=== PATIENT | male | born 1980 | race Caucasian/White ===

== ENCOUNTER 2017-07-27 18:34 | Inpatient (IN) ==
[2017-07-27] MEDS ORDERED: IOPAMIDOL 100 ML BOTTLE IV ONE (18:35)
--- NOTE | 2017-07-27 19:06 | Emergency Department Note ---
Abdominal Pain HPI - General Chief Complaint: Abdominal Pain Stated Complaint: abd pain Time Seen by Provider: 07/27/17 18:55 Source: patient Mode of arrival: ambulatory Limitations: no limitations - History of Present Illness HPI Narrative: Patient woke up this morning feeling normal did have breakfast at 9:00 in the morning which is his last meal. Patient states that approximately 10:00 in the morning started developing some midepigastric pain and the pain shifted over to the right lower quadrant at approximately 1:00. He has had 3 episodes of nausea vomiting. He has had no history of abdominal surgeries no appendectomies cholecystectomies. Is been no diarrhea or constipation issues no hematemesis no melena. Denies any urgency frequency or dysuria temperature is 98.1 blood pressure 131/89 pulse ox is 97% pulse is running at 92 respirations 16 - Related Data Home Medications Medication Instructions Recorded Confirmed Unknown For Bp 07/27/17 Allergies Allergy/AdvReac Type Severity Reaction Status Date / Time No Known Drug Allergies Allergy Unverified 07/27/17 18:38 Review of Systems All systems ED: reviewed and negative except as stated. Constitutional: Denies: fever, chills Eyes: Denies: eye pain ENT ED: Denies: ear pain Cardiovascular: Denies: chest pain Respiratory: Denies: shortness of breath Gastrointestinal: Reports: abdominal pain, nausea, vomiting. Denies: diarrhea, constipation, hematochezia, melena Genitourinary: Reports: as per HPI. Denies: dysuria, frequency, urgency Musculoskeletal: Denies: back pain Integumentary: Denies: rash, lesions Neurological: Denies: headache, weakness Psychiatric: Denies: anxiety, depression Endocrine: Denies: fatigue Hematological/Lymphatic: Denies: easy bleeding Abdominal Pain PMH - Past Medical History Medical history: Reports: non-contributory Surgical history ED: Reports: non-contributory - Social History Smoking status: Current every day smoker Alcohol use: Reports: Unknown Drug use: Reports: unknown Physical Exam Limitations: no limitations General appearance: alert Head: atraumatic, normocephalic Eye: Present: normal appearance. Absent: PERRL, EOMI ENT: normal exam, normal oropharynx, mucous membranes moist Neck: Present: normal inspection, full ROM. Absent: trachea midline Chest: Present: normal inspection. Absent: symmetric chest wall rise, tenderness Respiratory: Present: normal lung sounds bilaterally. Absent: respiratory distress, wheezes, stridor Cardiovascular: Present: regular rate, normal rhythm. Absent: bradycardia, tachycardia Abdominal: Present: soft, tenderness, guarding, rebound, normal bowel sounds. Absent: distention, rigidity Abdominal tenderness: Present: RLQ Extremities: Present: normal inspection, full ROM. Absent: tenderness Back: Present: normal inspection, full ROM. Absent: tenderness Neurological: Present: alert, oriented X3, CN II-XII intact Psychiatric: Present: normal affect, normal mood. Absent: depressed, agitated, anxious Skin: Present: warm, dry. Absent: intact, normal color Course Vital Signs Temperature 98.1 F 07/27/17 18:35 Pulse Rate 92 H 07/27/17 18:35 Respiratory Rate 16 07/27/17 18:35 Blood Pressure 137/89 07/27/17 18:35 Pulse Oximetry (%) 97 07/27/17 18:35 Temperature 98.1 F 07/27/17 18:35 Pulse Rate 80 07/27/17 19:47 Respiratory Rate 16 07/27/17 18:35 Blood Pressure 137/97 07/27/17 19:47 Pulse Oximetry (%) 98 07/27/17 19:47 Abdominal Pain - MDM Narrative Medical decision making narrative: Having guarding and rebound in the right lower quadrant. His UA is negative. White count is elevated at 19,600 CT of the abdomen reveals acute appendicitis. Dr Tapia contacted and patient to be admitted kept npo after midnight and surgery in am... Mariajose and greta cardenas in ed per Dr Tapia - Lab Data Result diagrams: 07/27/17 19:00 07/27/17 19:00 Lab Results 07/27/17 07/27/17 07/27/17 Range/Units 19:00 19:00 19:00 WBC 19.4 H (4.5-11.0) K/mcL RBC 4.33 L (4.50-5.90) M/mcL Hgb 14.6 (13.5-16.5) g/dL Hct 42.9 (41.0-55.0) % POC Hct 43.0 (41.0-55.0) % MCV 99.2 (80.0-100.0) fL MCH 33.8 (26.0-34.0) pg MCHC 34.1 (31.0-36.0) g/dL RDW 15.0 H (11.5-14.5) % Plt Count 324 (140-440) K/mcL MPV 8.0 (7.4-10.4) fL Total Counted 100 Seg Neutrophils % 85 H (38-78) % Band Neutrophils % Not Reportable Lymphocytes % 11 L (15-49) % Monocytes % (Manual) 4 (1-12) % Platelet Estimate Normal (NORMAL) RBC Morphology Normal (NORMAL) POC Sodium 138 (133-145) mmol/L Sodium 136 (133-145) mmol/L POC Potassium 3.9 (3.3-5.1) mmol/L Potassium 4.0 (3.3-5.1) mmol/L POC Chloride 102 (96-108) mmol/L Chloride 98 (96-108) mmol/L Carbon Dioxide 22 (22-30) mmol/L POC Total CO2 23 (22-30) mmol/L Anion Gap 16.0 (8-16) POC BUN 4 L (6-20) mg/dl BUN 6 (6-20) mg/dl Creatinine 0.7 (0.7-1.2) mg/dl POC Creatinine 0.5 L (0.7-1.2) mg/dl GFR Calculation 121 Glucose 112 H (70-105) mg/dL POC Glucose 115 H (70-105) mg/dL Calcium 9.4 (8.6-10.4) mg/dl POC WB Ioniz Calcium 1.12 L (1.16-1.32) mmol/L Total Bilirubin 0.6 (0.0-1.0) mg/dL AST 42 H (0-37) U/l ALT 39 (0-40) U/l Alkaline Phosphatase 89 (39-117) U/L Total Protein 7.6 (5.9-8.4) gm/dL Albumin 4.2 (3.2-5.2) gm/dL Globulin 3.4 (2.2-3.7) gm/dL Albumin/Globulin Ratio 1.2 (1.0-2.3) Lipase 19 (7-60) U/L Disposition Pt seen by PENAL OFFICER/PA only: No Clinical Impression: Appendicitis Qualifiers: Appendicitis type: acute appendicitis Disposition: Xfer As Inpt ([facility]) Condition: Fair Referrals: Jose Francisco Mckenna, [Primary Care Provider] -
[2017-07-27] MEDS: 0.9 % SODIUM CHLORIDE 1,000 ML IV SCH ×3 (19:42→23:34)
[2017-07-27 19:48] LABS: Mean Cell Volume 99.2 fL (80.0-100.0); Mean Corpuscular HGB Conc 34.1 g/dL (31.0-36.0); Mean Corpuscular Hemoglobin 33.8 pg (26.0-34.0); Platelet Count 324 K/mcL (140-440); RBC 4.33 M/mcL (4.50-5.90)
[2017-07-27 20:11] LABS: ALT/SGPT 39 U/l (0-40); Albumin 4.2 gm/dL (3.2-5.2); Albumin/Globulin Ratio 1.2 (1.0-2.3); Alkaline Phosphatase 89 U/L (39-117); Blood Urea Nitrogen 6 mg/dl (6-20)
[2017-07-27 20:25] LABS: Lymphocytes % 11 % (15-49); Monocytes % (Manual) 4 % (1-12); Platelet Estimate NORMAL (NORMAL); RBC Morphology NORMAL (NORMAL); Segmented Neutrophils % 85 % (38-78)
[2017-07-27] MEDS ORDERED: metroNIDAZOLE 500 MG/100 ML BAG IV ONE (20:47)
[2017-07-27] MEDS ORDERED: LEVOFLOXACIN 500 MG/100 ML BAG IV ONE (20:47)
[2017-07-27] MEDS ORDERED: ONDANSETRON 4 MG/2 ML VIAL IV PRN (20:56)
[2017-07-27] MEDS: PIPERACILLIN SODIUM/TAZOBACTAM 3.375 GM in DEXTROSE 5% IN WATER 50 ML IV SCH (23:53)
[2017-07-28 03:12] LABS: Appearance,Urine CLEAR; Bilirubin,Urine NEG (NEG); Color,Urine YELLOW; Glucose,Urine (UA) NEGATIVE (NEG); Leukocyte Esterase,Urine NEG /uL (NEG); Protein,Urine NEG (NEG); Specific Gravity,Urine 1.028 (1.000-1.035); Urine Blood NEG mg/dL (<0.03); Urobilinogen,Urine NEG (NEG)
[2017-07-28] MEDS: 0.9 % SODIUM CHLORIDE 1,000 ML IV SCH ×3 (03:42→14:01)
[2017-07-28] MEDS: PIPERACILLIN SODIUM/TAZOBACTAM 3.375 GM in DEXTROSE 5% IN WATER 50 ML IV SCH ×4 (04:58→22:11)
--- NOTE | 2017-07-28 06:52 | Cat Scan Report ---
CLINICAL INFORMATION: Right lower quadrant pain elevated white blood cell count COMPARISON: None. TECHNIQUE: 80 cc of Isovue-300 were injected intravenously, and 60 seconds later, 0.625 mm helical slices were obtained from the mid heart through the subtrochanteric regions. Following reconstruction, 2.5 mm sagittal, coronal and axial reformatted images were processed and reviewed at bone, lung and soft tissue windows. Five minutes later, 0.625 mm helical slices were obtained from the mid heart through the kidneys and viewed at soft tissue windows.The exam was performed using radiation dose optimization techniques including, but not limited to, automated exposure control, adjustment of the mA and/or kV according to patient size and use of iterative reconstruction technique. FINDINGS: Lung bases show no abnormality - no effusion. The visualized heart is normal. Images should the abdomen show the gallbladder and bile ducts, liver, both kidneys, adrenal glands, spleen, pancreas and aorta to be normal in size and figuration attenuation without focal lesion. 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 Images should the pelvis show urinary bladder, prostate seminal vesicles to be unremarkable. There is no free air, or free fluid. The appendix, located in in the inferior medial pericecal region, is dilated (12 millimeters) with wall thickening and inflammation in the periappendiceal fat. No appendicolith or abscess identified. The small bowel , stomach and large bowel are, otherwise, normal. Bone windows show no osseous abnormality IMPRESSION: Simple appendicitis. The appendix is located in the inferior medial pericecal region. Interpreted and Authenticated by: Misael Chi 07/28/17
--- NOTE | 2017-07-28 09:27 | General Surg History&Physical ---
History of Present Illness Patient information: Note initiated : 07/28/17 at 9:25 am Service Date, if different from initiated Date: [] Patient: Uche Ferrer a 37 y/o M admitted on 07/27/17 for abd pain. Chief Complaint: [] HPI: Mr. Ferrer is a 37 year old M admitted with recurrent abdominal pain. The patient had onset of upper abdominal pain in the midepigastrium about 10 AM yesterday. The pain continued throughout the day and he had multiple episodes of nausea and vomiting. He took tkes-zaq-mrimses medications without improvement. The pain finally settled in the right lower quadrant and became increasingly severe. He finally came to the emergency room where he was noted to have a tender abdomen with a white blood count of 19,[address] evidence of acute appendicitis. He he is admitted and will have laparoscopic Appendectomy on August 06. Past History Past medical history: Recent history of alcoholic hepatitis with jaundice due to excess alcohol intake, resolved Past surgical history: No surgical procedure Past family history: Mom age 70 with hypertension Father age 68 no medical illnesses Sister age 34 no medical illnesses Past social history: Single History of tobacco use of 6-8 cigarettes per day Prior history of heavy alcohol use, stopped 1-1/2 months ago Drug use-- patient denies use Medications and Allergies Home Medications Medication Instructions Recorded Confirmed Type Folic Acid 1 mg PO ONCE 07/27/17 07/27/17 History Losartan/Hctz 50/12.5 [Hyzaar 1 tab PO QDAY 07/27/17 07/27/17 History 50/12.5] Omeprazole [PriLOSEC] 20 mg PO DAILY 07/27/17 07/28/17 History Allergies Allergy/AdvReac Type Severity Reaction Status Date / Time No Known Drug Allergies Allergy Unverified 07/27/17 18:38 Exam Temp Pulse Resp BP Pulse Ox 99.8 F H 81 18 118/71 94 07/28/17 07:32 07/28/17 04:00 07/28/17 07:32 07/28/17 07:32 07/28/17 07:32 - General physical appearance well developed, well nourished, no distress, moderate pain, obese - Eyes PERRL, normal ocular movement. negative: icteric - ENT normal pinna, normal nares, normal mucosa, no hearing loss, no congestion - Head Head exam IM: Present: atraumatic, normal inspection, normocephalic - Neck no masses, no bruits, trachea midline, no lymphadectomy, no venous distension - Cardiovascular Cardiovascular exam IM: Present: normal rate and rhythm, RRR, +S1, +S2. Absent : JVD, tachycardia - Respiratory normal expansion, normal respiratory effort, clear to percussion, clear to auscultation - Abdomen Abdomen: Present: soft, tender (mild tenderness in left lower quadrant without guarding or rebound), bowel sounds Hernia: Present: none - Genitourinary Present: normal penis with no external lesions - Integumentary Present: no rash, no growths, no abnormal pigmentation - Neurologic Present: normal coordination, normal sensation - Musculoskeletal Present: normal gait, normal posture - Psychiatric Present: oriented to time, oriented to person, oriented to place, speech is normal, memory intact Assessment and Plan (1) Acute appendicitis Patient is counseled for laparoscopic appendectomy and then will be done later this morning Status: Acute Qualifiers: Acute appendicitis type: with localized peritonitis Qualified Code(s): K35.3 - Acute appendicitis with localized peritonitis (2) Hypertension Will continue her oral medications after surgery Status: Acute (3) History of acute alcoholic hepatitis Status: Acute
[2017-07-28] MEDS ORDERED: HYDROmorphone 2 MG/ML VIAL IV PRN (10:17)
[2017-07-28] MEDS ORDERED: IPRATROPIUM/ALBUTEROL 3 ML AMPUL.NEB NEB PRN (10:17)
[2017-07-28] MEDS ORDERED: LACTATED RINGERS 250 ML IV PRN (10:17)
[2017-07-28] MEDS ORDERED: PROMETHAZINE 25 MG/ML VIAL IM PRN (10:17)
[2017-07-28] MEDS ORDERED: KETOROLAC 30 MG/ML VIAL IV PRN (10:17)
[2017-07-28] MEDS ORDERED: MEPERIDINE 50 MG/ML INJECTION IM PRN (10:17)
[2017-07-28] MEDS ORDERED: METHOCARBAMOL 1,000 MG/10 ML VIAL IV PRN (10:17)
[2017-07-28] MEDS ORDERED: fentaNYL 100 MCG/2 ML VIAL IV PRN (10:17)
[2017-07-28] MEDS ORDERED: PROMETHAZINE 25 MG/ML VIAL IV PRN (10:17)
[2017-07-28] MEDS ORDERED: NALOXONE HCL 0.4 MG/ML VIAL IV PRN (10:17)
[2017-07-28] MEDS ORDERED: MEPERIDINE 25 MG/ML SYRINGE IV PRN (10:17)
[2017-07-28] MEDS ORDERED: ACETAMINOPHEN 1,000 MG/100 ML BOTTLE IV ONE (10:17)
[2017-07-28] MEDS ORDERED: FLUMAZENIL 0.1 MG/ML ML IV PRN (10:17)
[2017-07-28] MEDS ORDERED: BENZOCAINE/MENTHOL 1 LOZENGE PO PRN (10:17)
[2017-07-28] MEDS ORDERED: LACTATED RINGERS 1,000 ML IV SCH (10:30)
[2017-07-28] MEDS ORDERED: DEXAMETHASONE 10 MG/ML VIAL IV ONE (10:35)
[2017-07-28] MEDS ORDERED: ROCURONIUM 10 MG/ML ML IV ONE (10:35)
[2017-07-28] MEDS ORDERED: SUCCINYLCHOLINE 20 MG/ML ML IV ONE (10:35)
[2017-07-28] MEDS ORDERED: MIDAZOLAM 5 MG/5 ML VIAL IV ONE (10:35)
[2017-07-28] MEDS ORDERED: PHENYLEPHRINE 10 MG/ML VIAL IV ONE (10:35)
[2017-07-28] MEDS ORDERED: KETAMINE 100 MG/ML ML IV ONE (10:35)
[2017-07-28] MEDS ORDERED: LIDOCAINE HCL/PF 100 MG/5 ML SYRINGE IV ONE (10:35)
[2017-07-28] MEDS ORDERED: PROPOFOL 200 MG/20 ML VIAL IV ONE (10:35)
[2017-07-28] MEDS ORDERED: ONDANSETRON 4 MG/2 ML VIAL IV ONE (10:35)
[2017-07-28] MEDS ORDERED: fentaNYL 250 MCG/5 ML VIAL IV ONE (10:35)
[2017-07-28] MEDS ORDERED: GLYCOPYRROLATE 0.2 MG/ML VIAL IV ONE (10:35)
[2017-07-28] MEDS ORDERED: NEOSTIGMINE 1 MG/ML VIAL IV ONE (10:35)
--- NOTE | 2017-07-28 12:32 | Brief Operative Note ---
Date of procedure: 07/28/17 Pre-op diagnosis: ACUTE APPENDICITIS Post-op diagnosis: other (ACUTE APPENDICITIS WITH PERFORATION) Procedure: LAPAROSCOPIC APPENDECTOMY Grafts/Implants: No (ANKUSH X1) Anesthesia: GETA Findings: PARTIALLY RETROCECAL INFLAMMED APPENDIX WITH PERFORATION AND PHEGMON Complications: none Surgeon: Wesley Tapia Estimated blood loss (cc): 35 Specimens Removed/Pathology: other (APPENDIX) Condition: stable Disposition: PACU
[2017-07-28] MEDS ORDERED: ONDANSETRON 4 MG/2 ML VIAL IV PRN (13:12)
[2017-07-28] MEDS: FOLIC ACID 1 MG TABLET PO SCH (14:45)
[2017-07-29] MEDS: 0.9 % SODIUM CHLORIDE 1,000 ML IV SCH ×2 (00:15→09:51)
[2017-07-29] MEDS: PIPERACILLIN SODIUM/TAZOBACTAM 3.375 GM in DEXTROSE 5% IN WATER 50 ML IV SCH ×3 (06:00→21:54)
[2017-07-29] MEDS: OMEPRAZOLE 20 MG CAPSULE PO SCH (07:05)
[2017-07-29 07:16] LABS: Basophils # (Auto) 0 K/mcL (0.0-0.3); Basophils % (Auto) 0 % (0.0-2.0); Eosinophils # (Auto) 0 K/mcL (0.0-0.7); Eosinophils % (Auto) 0 % (0.0-7.0); Granulocytes % (Auto) 94.3 % (38.0-78.0); Lymphocytes # (Auto) 0.3 K/mcL (1.5-4.8); Mean Cell Volume 100.9 fL (80.0-100.0); Mean Corpuscular Hemoglobin 34.3 pg (26.0-34.0); Monocytes # (Auto) 0.5 K/mcL (0.1-0.9); Monocytes % (Auto) 3.7 % (1.0-12.0); Platelet Count 215 K/mcL (140-440); RBC 3.71 M/mcL (4.50-5.90); Red Cell Distribution Width 14.9 % (11.5-14.5)
[2017-07-29 08:12] LABS: ALT/SGPT 26 U/l (0-40); Albumin 3.7 gm/dL (3.2-5.2); Albumin/Globulin Ratio 1.2 (1.0-2.3); Alkaline Phosphatase 69 U/L (39-117); Bilirubin,Direct < 0.2 mg/dL (0.0-0.3); Blood Urea Nitrogen 8 mg/dl (6-20); Gamma Glutamyl Transpeptidase 85 U/L (8-61); Uric Acid 4.3 mg/dL (2.5-8.0)
[2017-07-29] MEDS ORDERED: LOSARTAN/HCTZ 50/12.5 TABLET PO SCH (09:00)
[2017-07-29] MEDS: LOSARTAN 50 MG TABLET PO SCH (09:50)
[2017-07-29] MEDS: HYDROCHLOROTHIAZIDE 12.5 MG CAPSULE PO SCH (09:50)
--- NOTE | 2017-07-29 14:08 | General Surgery Progress Note ---
Subjective Patient reports: feels better, pain is less, tolerating liquids well, flatus, bowel movement Narrative: Note initiated : 07/29/17 at 2:08 pm Service Date, if different from initiated Date: [] Patient: Uche Ferrer 37 y/o M admitted on 07/27/17 for abd pain. Chief Complaint: [patient feels better. He is having some lower abdominal pain. He denies nausea and vomiting and requests this be advanced. His white blood count is decreased.white blood count has decreased to 14,000 and he is afebrile. ANKUSH drainage is mostly serosanguineous .] Objective Temp Pulse Resp BP Pulse Ox 98.8 F 80 16 116/76 98 07/29/17 12:00 07/29/17 07:09 07/29/17 12:00 07/29/17 12:00 07/29/17 12:00 - Additional Data Intake & Output - Last 24 hours: Intake & Output 07/27/17 07/28/17 07/29/17 07/30/17 05:59 05:59 05:59 05:59 Intake Total 610 / 610 4340 / 4340 1010 / 1010 Output Total 1575 / 1575 1010 / 1010 Balance -965 / -965 3330 / 3330 1010 / 1010 Weight 310 lb 8 oz 308 lb 308 lb - General physical appearance well developed, well nourished, no distress - Eyes PERRL, normal ocular movement - ENT normal pinna, normal nares, normal mucosa, no hearing loss, no congestion - Neck no masses, no bruits, trachea midline, no lymphadectomy, no venous distension - Respiratory normal expansion (L we can stop), normal respiratory effort (Neck is also going) , clear to percussion, clear to auscultation - Cardiovascular Cardiovascular exam: Present: normal rate and rhythm, RRR, +S1, +S2 ( well and 1 treatment was). Absent: JVD, tachycardia - Abdomen soft, tender (it might be to obtuseweighted we are were), bowel sounds (present) , surgical scars (none), masses (none) - Integumentary no rash, no growths, no abnormal pigmentation - Neurologic normal coordination, normal sensation - Musculoskeletal normal gait, normal posture - Psychiatric oriented to time, oriented to person, oriented to place, speech is normal, memory intact - Labs 07/29/17 04:48 07/29/17 04:48 Diabetes panel 07/29/17 Range/Units 04:48 Sodium 139 (133-145) mmol/L Potassium 3.9 (3.3-5.1) mmol/L Chloride 101 (96-108) mmol/L Carbon Dioxide 23 (22-30) mmol/L BUN 8 (6-20) mg/dl Creatinine 0.6 L (0.7-1.2) mg/dl Glucose 124 H (70-105) mg/dL Calcium 8.8 (8.6-10.4) mg/dl AST 21 (0-37) U/l ALT 26 (0-40) U/l Alkaline Phosphatase 69 (39-117) U/L Total Protein 6.8 (5.9-8.4) gm/dL Albumin 3.7 (3.2-5.2) gm/dL Triglycerides 67 (<150) mg/dl Calcium panel 07/29/17 Range/Units 04:48 Calcium 8.8 (8.6-10.4) mg/dl Phosphorus 3.3 (2.7-4.5) mg/dL Albumin 3.7 (3.2-5.2) gm/dL Pituitary panel 07/29/17 Range/Units 04:48 Sodium 139 (133-145) mmol/L Potassium 3.9 (3.3-5.1) mmol/L Chloride 101 (96-108) mmol/L Carbon Dioxide 23 (22-30) mmol/L BUN 8 (6-20) mg/dl Creatinine 0.6 L (0.7-1.2) mg/dl Glucose 124 H (70-105) mg/dL Calcium 8.8 (8.6-10.4) mg/dl Adrenal panel 07/29/17 Range/Units 04:48 Sodium 139 (133-145) mmol/L Potassium 3.9 (3.3-5.1) mmol/L Chloride 101 (96-108) mmol/L Carbon Dioxide 23 (22-30) mmol/L BUN 8 (6-20) mg/dl Creatinine 0.6 L (0.7-1.2) mg/dl Glucose 124 H (70-105) mg/dL Calcium 8.8 (8.6-10.4) mg/dl Total Bilirubin 0.6 (0.0-1.0) mg/dL AST 21 (0-37) U/l ALT 26 (0-40) U/l Alkaline Phosphatase 69 (39-117) U/L Total Protein 6.8 (5.9-8.4) gm/dL Albumin 3.7 (3.2-5.2) gm/dL Assessment and Plan (1) Acute appendicitis Status: Acute Assessment and plan: We will continue present IV fluids Diet will be advanced to GI soft Check labs in the morning Possible discharge tomorrow Current Visit: Yes (2) Hypertension Status: Acute Current Visit: Yes (3) History of acute alcoholic hepatitis Status: Acute Current Visit: Yes - Time Spent With Patient Total time spent is greater than 50% in coordination of care (as documented) at patient's floor/unit and/or counseling patient:
[2017-07-29] MEDS: FOLIC ACID 1 MG TABLET PO SCH ×2 (15:39→15:43)
[2017-07-29] MEDS ORDERED: DOCUSATE SODIUM 50 MG/5 ML ORAL.SOL PO SCH (21:00)
[2017-07-29] MEDS: DOCUSATE SODIUM 100 MG CAPSULE PO SCH (21:54)
[2017-07-30] MEDS: PIPERACILLIN SODIUM/TAZOBACTAM 3.375 GM in DEXTROSE 5% IN WATER 50 ML IV SCH ×2 (05:57→13:53)
[2017-07-30 06:47] LABS: Basophils # (Auto) 0 K/mcL (0.0-0.3); Basophils % (Auto) 0.2 % (0.0-2.0); Eosinophils # (Auto) 0 K/mcL (0.0-0.7); Eosinophils % (Auto) 0.4 % (0.0-7.0); Granulocytes % (Auto) 86.5 % (38.0-78.0); Lymphocytes # (Auto) 0.7 K/mcL (1.5-4.8); Lymphocytes % (Auto) 6.4 % (15.5-49.0); Mean Cell Volume 101.9 fL (80.0-100.0); Mean Corpuscular HGB Conc 33.7 g/dL (31.0-36.0); Mean Corpuscular Hemoglobin 34.3 pg (26.0-34.0); Monocytes # (Auto) 0.7 K/mcL (0.1-0.9); Monocytes % (Auto) 6.5 % (1.0-12.0); Platelet Count 190 K/mcL (140-440); RBC 3.75 M/mcL (4.50-5.90); Red Cell Distribution Width 15.2 % (11.5-14.5)
[2017-07-30 07:09] LABS: ALT/SGPT 25 U/l (0-40); Albumin 3.5 gm/dL (3.2-5.2); Albumin/Globulin Ratio 1.2 (1.0-2.3); Alkaline Phosphatase 87 U/L (39-117); Bilirubin,Direct < 0.2 mg/dL (0.0-0.3); Blood Urea Nitrogen 8 mg/dl (6-20); Gamma Glutamyl Transpeptidase 121 U/L (8-61); Uric Acid 4.3 mg/dL (2.5-8.0)
[2017-07-30] MEDS: OMEPRAZOLE 20 MG CAPSULE PO SCH (07:21)
[2017-07-30] MEDS: FOLIC ACID 1 MG TABLET PO SCH (08:50)
[2017-07-30] MEDS: LOSARTAN 50 MG TABLET PO SCH (08:50)
[2017-07-30] MEDS: DOCUSATE SODIUM 100 MG CAPSULE PO SCH (08:50)
[2017-07-30] MEDS: HYDROCHLOROTHIAZIDE 12.5 MG CAPSULE PO SCH (08:50)
[2017-07-30] MEDS ORDERED: oxyCODONE/APAP 10/325MG TABLET PO PRN (09:10)
--- NOTE | 2017-07-30 14:51 | Discharge Summary ---
Providers - Providers Patient information: Note initiated : 07/30/17 at 2:49 pm Service Date, if different from initiated Date: [] Patient: Uche Ferrer 37 y/o M admitted on 07/27/17 for Abd Pain/ Appendicitis. Chief Complaint: [] Date of admission: 07/27/17 Discharge date: 07/30/17 Attending physician: Wesley Tapia Hospitalization Hospital course: 37-year-old male admitted on August 06 with abdominal pain nausea and vomiting of 2 days' duration. Patient was noted to have acute appendicitis and underwent laparoscopic appendectomy on August 06. He had perforation of the appendix with phlegmon. An uneventful appendectomy was done and the area was drained. He has been treated with IV antibiotics in the interim. His white blood count has returned to normal. He is tolerating a diet and having regular bowel movements. Patient does not have any other problems and is stable for discharge home Discharge diagnosis: acute appendicitis with perforation Reason for admission: recurrent abdominal pain with nausea and vomiting Procedures: Laparoscopic appendectomy Pertinent studies/significant findings: CT of abdomen and pelvis with contrast Complications: None Exam Temp Pulse Resp BP Pulse Ox 98.8 F 90 20 125/76 96 07/30/17 11:34 07/30/17 11:34 07/30/17 11:34 07/30/17 11:34 07/30/17 11:34 - General physical appearance well developed, well nourished, no distress - Eyes PERRL, normal ocular movement - ENT normal pinna, normal nares, normal mucosa, no hearing loss, no congestion - Head Head exam IM: Present: atraumatic, normocephalic - Neck no masses, no bruits, trachea midline, no lymphadectomy, no venous distension - Cardiovascular Cardiovascular exam IM: Present: normal rate and rhythm - Respiratory normal expansion, normal respiratory effort, clear to percussion, clear to auscultation - Abdomen Abdomen: Present: soft, tender (mild tenderness of perioperative area; good active bowel sounds; serous fluid in ANKUSH), bowel sounds Hernia: Present: none - Genitourinary Present: normal penis with no external lesions - Integumentary Present: no rash, no growths, no abnormal pigmentation - Neurologic Present: normal coordination, normal sensation - Musculoskeletal Present: normal gait, normal posture - Psychiatric Present: oriented to time, oriented to person, oriented to place, speech is normal, memory intact Discharge Plan - Patient/Caregiver Discharge Instructions Activity: increase activity as tolerated Diet: Regular Diet Additional Instructions: You may shower as needed empty ANKUSH canister as needed Follow-up in the office in 2 weeks Prescriptions: Ciprofloxacin [Cipro] 500 mg PO BID #14 tab oxyCODONE HCL [Oxycodone HCl] 5 mg PO Q4HP PRN #30 cap PRN Reason: Pain Level > 6 - Follow up Plan Follow up with: Jose Francisco Mckenna DO [Primary Care Provider] - Disposition: Home, Self-Care Prognosis: Good Rehab Potential: Good I certify that the patient requires SNF services.: No Overall status at discharge: patient is not back to baseline Pending Studies Resuscitation Status Full Code Diet GI Soft/Transitional Start [place] Jul 29 1413 Docusate Sodium (Colace) 100 mg PO BID [facility] Last Admin: 07/30/17 08:50 Dose: 100 mg Admin: 07/29/17 21:54 Dose: 100 mg Folic Acid (Folic Acid) 1 mg PO DAILY [facility] Last Admin: 07/30/17 08:50 Dose: 1 mg Admin: 07/29/17 15:43 Dose: 1 mg Hydrochlorothiazide (Oretic) 12.5 mg PO DAILY [facility] Last Admin: 07/30/17 08:50 Dose: 12.5 mg Admin: 07/29/17 09:50 Dose: 12.5 mg Piperacillin Sod/Tazobactam (Sod 3.375 gm/ Dextrose) 50 mls @ 100 mls/hr IV Q8H [facility] Last Admin: 07/30/17 13:53 Dose: 100 mls/hr Infusion: 07/30/17 06:27 Dose: 0 mls/hr Admin: 07/30/17 05:57 Dose: 100 mls/hr Infusion: 07/29/17 22:29 Dose: 0 mls/hr Admin: 07/29/17 21:54 Dose: 100 mls/hr Infusion: 07/29/17 14:42 Dose: 0 mls/hr Admin: 07/29/17 14:12 Dose: 100 mls/hr Infusion: 07/29/17 06:30 Dose: 0 mls/hr Admin: 07/29/17 06:00 Dose: 100 mls/hr Infusion: 07/28/17 22:41 Dose: 0 mls/hr Admin: 07/28/17 22:11 Dose: 100 mls/hr Infusion: 07/28/17 15:15 Dose: 0 mls/hr Admin: 07/28/17 14:45 Dose: 100 mls/hr Losartan Potassium (Cozaar) 50 mg PO DAILY [facility] Last Admin: 07/30/17 08:50 Dose: 50 mg Admin: 07/29/17 09:50 Dose: 50 mg Omeprazole (Prilosec) 20 mg PO QAMAC [facility] Last Admin: 07/30/17 07:21 Dose: 20 mg Admin: 07/29/17 07:05 Dose: 20 mg Shift Summary 07/30/17 04:59 Shift Summary by Isabelle Degroot A&Adriel, makes needs known. Having some shoulder and abdominal discomfort tonight, refused Morphine and didn't want me to call to get some oral meds, he states he can tolerate it at this point, may need some this morning. Colace given last night, no BM at this time. Tolerating GI soft diet. Anxious about going home with ANKUSH, it put out 60mls serosanguineous tonight. 3 lap sites to abdomen, above and below umbilicus and to left lower abdomen. ANKUSH site to right lower abdomen. Hopes to go home today. Initialized on 07/30/17 04:59 - END OF NOTE
--- NOTE | 2017-07-31 13:16 | Surgical Pathology Report ---
HISTOLOGY SPECIMEN MICROSCOPIC DIAGNOSIS APPENDIX, APPENDECTOMY: -- ACUTE APPENDICITIS WITH ACUTE SEROSITIS. (RLF:milanf) PROCEDURAL IMPRESSION Acute appendicitis with localized peritonitis. GROSS DESCRIPTION Received in formalin labeled with the patient information, is a 7.5 cm long by up to 1.2 cm in diameter shelby-gamez appendix with up to 2.0 cm of attached yellow-gamez adipose tissue. The surface is disrupted near the margin and has a thickened yellow-gamez possible exudate. The lumen contains a minimal amount of soft brown material. Syrup Mixer Helper sections submitted - two cassettes. (STS:sln) Electronically Signed by: Stacey Garcia M.D.
--- NOTE | 2017-08-14 07:37 | Operative Note ---
DATE OF OPERATION: 07/28/2017 PREOPERATIVE DIAGNOSIS: Acute appendicitis. POSTOPERATIVE DIAGNOSIS: Acute appendicitis with perforation. PROCEDURE: Laparoscopic appendectomy. SURGEON: Wesley Tapia MD FINDINGS: Partially retrocecal inflamed appendix with perforation and phlegmon. DESCRIPTION OF PROCEDURE: Under general anesthesia, the patient's abdomen was prepped and draped in a sterile field. A time-out procedure was carried out as per protocol. A supraumbilical incision was made and Veress needle was inserted uneventfully. Abdomen was insufflated with 2 liters of CO2. A 12 mm port was placed. Laparoscope was placed. There was inflammation along the lateral aspect of the cecum and the ascending colon. A 5 mm port was placed in the suprapubic midline and 12 mm port was placed in the left lower quadrant. The cecum was identified. The patient was placed in deep Trendelenburg position and rotated to the left. The base of the appendix was not significantly inflamed. A window was made in the mesoappendix and the base of the appendix was transected using an Endo [place] stapler. The proximal portion of the appendix was dissected using primarily blunt dissection. It was severely adherent to the undersurface of the cecum. In the midportion of the appendix there was a perforation which was noted. The distal tip was involved in the phlegmon. I placed another port in the right lateral flank. Through this, I was able to dissect the tip of the appendix, which was in the mid ascending colon. Once this was done, the appendix was placed in an Endopouch and retrieved. Irrigation was carried out. Juan-Jasso drain was placed and positioned in the bed of the tract of the inflamed appendix close to the area of the phlegmon. CO2 was allowed to escape from the abdomen and the ports were removed. Fascia of the umbilicus was closed with 0 Vicryl. Skin incisions were closed with adriel. The patient tolerated the procedure well. He was awakened, transferred to a bed and taken to the postanesthetic care unit in stable, satisfactory condition. LCS:billy Job ID: [id number] Doc ID: [id number] Wesley Tapia M.D.
== END 2017-07-30 16:25 | disposition home or self-care (01) | DRG 339 ==
LOC: ED 18:34 → MEDSUR 22:10
PROVIDERS: ADMIT Family Medicine Adult Medicine; ATTEND Family Medicine Adult Medicine
PROC: LAPAPPY (ICD-10-PCS; 2017-07-28 10:30)